=== PATIENT | female | born 1980 | race Caucasian/White ===

== ENCOUNTER 2020-02-22 12:51 | Emergency (ER) | payer BC, OTHER ==
[2020-02-22] MEDS ORDERED: Dexamethasone 4 MG/ML SDV IM ONE (13:22)
--- NOTE | 2020-02-22 13:31 | EDM.PDOC ---
ED HPI GENERAL MEDICAL PROBLEM - General Chief Complaint: Respiratory Problem Stated Complaint: POSS COVID Time Seen by Provider: 02/22/20 13:00 Source of Information: Reports: Patient History Limitations: Reports: No Limitations - History of Present Illness INITIAL COMMENTS - FREE TEXT/NARRATIVE: diagnosed with COVID 02/14 still has cough , shortness of breath , loss of taste, smell , congestion , fever and body aches has been under quarantine taking OTC medications contacted from work Onset: Gradual Onset Date: 02/15/20 Duration: Getting Worse Location: Reports: Chest Quality: Reports: Ache Severity: Moderate Improves with: Reports: None Worsens with: Reports: Breathing, Movement Context: Reports: Sick Contact Associated Symptoms: Reports: Cough, Fever/Chills, Headaches, Loss of Appetite, Malaise, Shortness of Breath, Weakness Treatments [employer]: Reports: Acetaminophen Generalized Pain Score (Numeric/FACES): 7 - Related Data Allergies Allergy/AdvReac Type Severity Reaction Status Date / Time aspirin Allergy Bleeding Verified 02/22/20 13:32 Penicillins Allergy Hives Verified 02/22/20 13:32 Home Meds: Home Meds Levothyroxine 25 mcg PO DAILY 12/15/15 [History] Topiramate [Topiramate ER] 100 mg PO DAILY 12/15/15 [History] Albuterol Sulfate [Proair Hfa] 8.5 gm IH Q6HR #1 hfa.aer.ad 02/22/20 [Rx] Azithromycin [Zithromax] 500 mg PO DAILY #5 tab 02/22/20 [Rx] Cetirizine [ZyrTEC] 10 mg PO DAILY #30 tab 02/22/20 [Rx] guaiFENesin [Mucinex] 600 mg PO BID #30 tab.er.12h 02/22/20 [Rx] Past Medical History [employer] OFF[employer]ER History: Reports: , Other (See Below) Other ARM[employer] OFF[employer]ER History: hysterectomy, x 3. Neurological History: Reports: Migraines Endocrine/Metabolic History: Reports: Hypothyroidism ED ROS GENERAL - Review of Systems Review Of Systems: See Below Constitutional: Reports: Fever, Chills, Malaise, Weakness, Fatigue, Night Sweats, Decreased Appetite HEENT: Reports: Sinus Problem, Throat Pain Respiratory: Reports: Shortness of Breath, Cough. Denies: Wheezing Cardiovascular: Reports: Dyspnea on Exertion. Denies: Chest Pain, Claudication Endocrine: Reports: No Symptoms GI/Abdominal: Reports: No Symptoms Musculoskeletal: Reports: No Symptoms Skin: Reports: No Symptoms Neurological: Reports: No Symptoms, Headache Psychiatric: Reports: No Symptoms Hematologic/Lymphatic: Reports: No Symptoms Immunologic: Reports: No Symptoms ED EXAM, GENERAL - Physical Exam Exam: See Below Exam Limited By: No Limitations General Appearance: Alert, WD/WN, Mild Distress, Other (ill looking) Eye Exam: Bilateral Eye: EOMI Ears: Normal External Exam, Normal TMs Nose: Normal Inspection, Normal Mucosa Throat/Mouth: Inflammation Head: Atraumatic, Normocephalic Neck: Supple, Non-Tender Respiratory/Chest: Lungs Clear. No: Rales, Rhonchi, Wheezing Cardiovascular: Regular Rate, Rhythm GI/Abdominal: Normal Bowel Sounds, Soft Neurological: Alert, Oriented, CN II-XII Intact Course - Vital Signs Last Recorded V/S: Last Vital Signs Temp 36.8 C 02/22/20 12:51 Pulse 77 02/22/20 12:51 Resp 16 02/22/20 12:51 BP 121/71 02/22/20 12:51 Pulse Ox 98 02/22/20 12:51 - Orders/Labs/Meds Meds: Medications Discontinued Medications Generic Name Dose Route Start Last Admin Trade Name Jessee PRN Reason Stop Dose Admin Dexamethasone 8 mg 02/22/20 13:22 02/22/20 13:30 Dexamethasone IM 02/22/20 13:23 8 mg ONETIME ONE Administration - Re-Assessments/Exams Free Text/Narrative Re-Assessment/Exam: 02/22/20 13:30 given IM Decadron Departure - Departure Time of Disposition: 13:40 Disposition: Home, Self-Care 01 Condition: Fair Clinical Impression: COVID-19 virus infection, Bronchitis - Discharge Information *PRESCRIPTION DRUG MONITORING PROGRAM REVIEWED*: Not Applicable *COPY OF PRESCRIPTION DRUG MONITORING REPORT IN PATIENT LISANDRO: Not Applicable Prescriptions: guaiFENesin [Mucinex] 600 mg PO BID #30 tab.er.12h Albuterol Sulfate [Proair Hfa] 8.5 gm IH Q6HR #1 hfa.aer.ad Azithromycin [Zithromax] 500 mg PO DAILY #5 tab Cetirizine [ZyrTEC] 10 mg PO DAILY #30 tab Instructions: COVID-19 Frequently Asked Questions, Acute Bronchitis, Adult, [id number], COVID-19: How to Protect Yourself and Others - CDC, Dexamethasone injection Referrals: Stevie Bryan MD [Primary Care Provider] - Forms: ED Department Discharge Additional Instructions: 1)Increase fluid intake 2) Take Extra vitamin c and Zinc 200mg tabs daily 3) follow up as needed if symptoms do not improve
[2020-02-22 21:22] VITALS: BP 121/71; PULSE 77
== END 2020-02-22 13:49 | disposition home or self-care (01) ==
LOC: FB.ED 12:51
DX: U07.1 COVID-19 (principal); J40 Bronchitis, not specified as acute or chronic; E03.9 Hypothyroidism, unspecified; Z88.6 Allergy status to analgesic agent; Z88.0 Allergy status to penicillin; Z79.899 Other long term (current) drug therapy
CPT/HCPCS: 96372; 99284; J1100